=== PATIENT | female | born 1935 | race Caucasian/White ===

== ENCOUNTER → 2016-07-09 | Outpatient (CLI) | payer MEDICARE ==
[2016-07-09 12:48] LABS: Basophils % (A) 0 %; CH 30.3; CHCM 33.5; Eosinophils # (A) 0.3 k/uL (0-0.7); Eosinophils % (A) 3 %; HCT 39.9 % (34.0-46.0); HDW 2.32; HGB 13.3 gm/dL (11.4-16.0); Luc # (Auto) 0.21; Luc % (Auto) 2; Lymphocytes # (A) 2.3 k/uL (1.0-4.8); Lymphocytes % (A) 25 %; MCH 30.3 pg (25.0-35.0); MCHC 33.4 g/dL (31.0-37.0); MCV 90.8 fL (80.0-100.0); Mean Platelet Volume 7.1; Monocytes # (A) 0.6 k/uL (0-1.0); Monocytes % (A) 6 %; Neutrophils # (A) 5.8 k/uL (1.3-7.7); Neutrophils % (A) 63 %; RBC 4.39 m/uL (3.80-5.40); RDW 12.8 % (11.5-15.5); WBC 9.2 k/uL (3.8-10.6); WBC (Perox) 9.17
[2016-07-09 12:52] LABS: Appearance,Urine Clear (Clear); Bacteria,Urine Occasional /hpf; Bilirubin,Urine Negative (Negative); Glucose,Urine (UA) Negative (Negative); Ketones,Urine Trace (Negative); Leukocyte Esterase,Urine Large (Negative); Mucus,Urine Rare /hpf; Nitrite,Urine Negative (Negative); PH, Urine 5.5 (5.0-8.0); Particle Count 2813; Protein,Urine Trace (Negative); RBC,Urine 3 /hpf (0-5); Specific Gravity,Urine 1.026 (1.001-1.035); Squamous Epithelial Cell,Urine 1 /hpf (0-4); UA Billing (MACRO vs. MICRO) MICRO; WBC,Urine 37 /hpf (0-5)
[2016-07-09 13:10] LABS: Calcium 9.9 mg/dL (8.4-10.2); Magnesium 2.1 mg/dL (1.6-2.3); Phosphorous 3.5 mg/dL (2.5-4.5); Potassium 4.4 mmol/L (3.5-5.1); Uric Acid 2.9 mg/dL (3.7-7.4)
[2016-07-09 13:18] LABS: % Iron Saturation 17.5 % (20-50)
== END | disposition home or self-care (01) ==
LOC: LABWHC1 12:21
PROVIDERS: ATTEND Nurse Practitioner Family
DX: N25.81 Secondary hyperparathyroidism of renal origin (principal); N18.3 Chronic kidney disease, stage 3 (moderate); E55.9 Vitamin D deficiency, unspecified; D50.9 Iron deficiency anemia, unspecified; M10.9 Gout, unspecified; N39.0 Urinary tract infection, site not specified
CPT/HCPCS: 36415; 80048; 81001; 82040; 82306; 82728; 83540; 83550; 83735; 83970; 84100; 84550; 85025

== ENCOUNTER → 2016-10-23 | Outpatient (CLI) | payer MEDICARE ==
[2016-10-23 12:20] LABS: Calcium 9.7 mg/dL (8.4-10.2); Potassium 4.3 mmol/L (3.5-5.1)
== END | disposition home or self-care (01) ==
LOC: LABWHC1 11:46
PROVIDERS: ATTEND Nurse Practitioner Family
DX: N18.3 Chronic kidney disease, stage 3 (moderate) (principal)
CPT/HCPCS: 36415; 80048

== ENCOUNTER 2019-11-29 06:22 | Day surgery (SDC) | payer MEDICARE, OTHER ==
[2019-11-24 15:53] VITALS: BMI 31.2
[~2019-11-29 06:22] MED LIST: ALPRAZolam 0.25 MG TAB PO PRN; ALPRAZolam 0.5 MG TAB PO PRN; ASPIRIN 325 MG TAB PO STA; ATORVASTATIN 80 MG TAB PO STA; NITROGLYCERIN SL TABS 0.4 MG TAB SUBLINGUAL PRN; SODIUM CHLORIDE 0.9% 1,000 ML in EMPTY BAG 1 BAG IV ONE
[2019-11-29 07:09] VITALS: TEMP 98.1
[2019-11-29 07:14] LABS: Basophils # (A) 0.1 k/uL (0-0.2); Basophils % (A) 0 %; Eosinophils # (A) 0.5 k/uL (0-0.7); Eosinophils % (A) 4 %; HCT 39.2 % (34.0-46.0); HGB 12.5 gm/dL (11.4-16.0); Hypochromasia Slight; Lymphocytes % (A) 23 %; MCH 29.1 pg (25.0-35.0); Mean Platelet Volume 7.2; Monocytes # (A) 0.9 k/uL (0-1.0); Monocytes % (A) 7 %; Neutrophils # (A) 8.4 k/uL (1.3-7.7); Neutrophils % (A) 64 %; Platelet Count 413 k/uL (150-450); RDW 13.1 % (11.5-15.5)
[2019-11-29] MEDS ORDERED: LIDOCAINE 1% INJ 10MG/ML (20 ML MDV) ONE (07:22)
[2019-11-29] MEDS ORDERED: VERAPAMIL 2.5 MG/ML 2 ML AMP ONE (07:23)
[2019-11-29 07:25] LABS: Calcium 9.3 mg/dL (8.4-10.2); Potassium 3.6 mmol/L (3.5-5.1)
[2019-11-29 07:31] LABS: Glucose,Whole Blood 60 mg/dL (75-99)
[2019-11-29] MEDS ORDERED: LIDOCAINE 1% INJ 10MG/ML (20 ML MDV) SQ ONE (07:44)
[2019-11-29] MEDS ORDERED: MIDAZOLAM 2 MG/2 ML VIAL IV ONE (07:45)
[2019-11-29] MEDS ORDERED: DEXTROSE 5%-0.9% NACL 1,000 ML IV SCH (07:45)
[2019-11-29] MEDS ORDERED: VERAPAMIL SYRINGE (5 MG/10 ML) INTRAARTER ONE (07:46)
[2019-11-29] MEDS ORDERED: HEPARIN SODIUM 1,000 UN/ML (10ML VL) IV ONE ×2 (07:46→07:48)
[2019-11-29] MEDS ORDERED: HEPARIN SODIUM 1,000 UN/ML (10ML VL) ONE (07:47)
[2019-11-29] MEDS ORDERED: DEXTROSE 50% SYRINGE 50 ML IVP ONE (07:52)
[2019-11-29] MEDS ORDERED: IOPAMIDOL-370 100ML BTL INJ ONE (08:00)
[2019-11-29 08:05] LABS: Glucose,Whole Blood 89 mg/dL (75-99)
[2019-11-29 08:20] LABS: Glucose,Whole Blood 83 mg/dL (75-99)
[2019-11-29] MEDS ORDERED: SODIUM CHLORIDE 0.9% 1,000 ML IV SCH (09:00)
[2019-11-29 09:02] VITALS: RESP 16
--- NOTE | 2019-11-29 10:07 | CC ---
CARDIAC CATHETERIZATION REPORT DATE OF SERVICE: 11/29/2019 PROCEDURE: Left heart catheterization, coronary angiography. PERFORMED BY: Dr. Mirna Hill. Moderate conscious sedation time was 19 minutes. Patient was administered Versed. Oxygen saturation, hemodynamics and EKG were monitored closely. CLINICAL INFORMATION: Mrs. Юлия Vazquez is 84-year-old lady with a known history of type 2 diabetes, hypertension, hyperlipidemia, CAD with a prior acute inferior DC in August 2014. At that time she underwent stenting of proximal RCA, dominant vessel with excellent result. Because of an abnormal stress test and symptoms of chest tightness, pressure and shortness of breath. She was advised to repeat cardiac catheterization after due discussion regarding risks, benefits, and options. There was evidence of inferior wall reversible defect. PROCEDURE NOTE: Under local anesthesia and strict aseptic precautions, a 6-[place] introducer was placed in the right radial artery. Using a JL3.5 and JR4 catheters, I performed coronary angiography and the same right catheter was used to check LV pressures. LV gram was not performed. Following the procedure, a TR band was applied and patient was sent to the room in a stable condition. Excellent hemostasis was secured. CARDIAC CATHETERIZATION FINDINGS: Left ventricular end-diastolic pressure was about 13 mmHg without any gradient across the aortic valve. CORONARY ANGIOGRAPHY FINDINGS: RIGHT CORONARY ARTERY: This is a very dominant vessel. No significant disease. The vessel at the site of previous stenting is widely patent with no more than 35% narrowing just before the stented segment. Flow is brisk. The stented segment is widely patent. Beyond the stented area, the flow is brisk and the vessel bifurcates into a large PLV, smaller PDA which has minor irregularities. The stented segment is widely patent with no more than 30% narrowing located just proximal to the stented segment. LEFT MAIN CORONARY ARTERY: This is a short, patent vessel, free of significant disease. It trifurcates into LAD, ramus intermedius and circumflex. No significant disease in the left main. LEFT ANTERIOR DESCENDING CORONARY ARTERY: Good caliber vessel extends along the anterior wall, gives off septal and diagonal branches. No significant disease in the entire LAD system. Minor irregularities noted. There is mild calcification. The stenosis of no more than 30%-35% noted. RAMUS INTERMEDIUS: This is a good caliber vessel, gives off a superior and inferior branch both of which are free of significant disease. Superior branch with a 30% narrowing. The caliber of the ramus has good flow, is brisk. No significant disease. LEFT POSTERIOR CIRCUMFLEX CORONARY ARTERY: Small nondominant vessel. Minor irregularities. No significant disease. LV-gram was not performed. FINAL IMPRESSION: This patient has normal filling pressures. No gradient across the aortic valve, previously stented RCA is widely patent with a 30% narrowing before the stented segment. RCA is dominant, has no significant disease. LAD, ramus, and circumflex are also free of significant disease. Mild calcification is noted. Normal filling pressures. RECOMMENDATIONS: Findings were discussed with the patient and her friend. I am recommending continued medical therapy with risk factor modification. She will be discharged later on today and I will see her in the office next week. MMODL / IJN: [id number] /
[2019-11-29 12:51] LABS: Glucose,Whole Blood 72 mg/dL (75-99)
[2019-11-29 13:50] VITALS: BP 137/74; PULSE 72
== END 2019-11-29 14:02 | disposition home or self-care (01) ==
LOC: CATHCVL 06:22 → 3NCARDOBS 09:48 → CATHCVL 14:02
PROVIDERS: ATTEND Internal Medicine Interventional Cardiology
DX: I25.110 Atherosclerotic heart disease of native coronary artery with unstable angina pectoris (principal); I25.2 Old myocardial infarction; I10 Essential (primary) hypertension; E11.9 Type 2 diabetes mellitus without complications; E78.00 Pure hypercholesterolemia, unspecified; E78.5 Hyperlipidemia, unspecified; F17.200 Nicotine dependence, unspecified, uncomplicated; Z79.02 Long term (current) use of antithrombotics/antiplatelets; Z79.82 Long term (current) use of aspirin; Z79.899 Other long term (current) drug therapy; Z79.4 Long term (current) use of insulin; Z98.890 Other specified postprocedural states; Z95.5 Presence of coronary angioplasty implant and graft; Z82.49 Family history of ischemic heart disease and other diseases of the circulatory system
CPT/HCPCS: 93458; 80048; 85025; C1769 ×2; C1894; J2250; J2001; J1644; Q9967